=== PATIENT | female | born 1980 | race Caucasian/White ===

== ENCOUNTER 2019-09-30 14:17 | Outpatient (CLI) | payer BC | END 2019-09-30 14:18 | disposition home or self-care (01) | LOC: COV 14:17 | PROVIDERS: ATTEND Family Medicine | DX: R05 Cough (principal); R50.9 Fever, unspecified | CPT/HCPCS: 81599 ==

== ENCOUNTER 2019-10-14 08:00 | Outpatient (CLI) | payer BC, MEDICAID ==
[2019-10-14 18:38] LABS: H. PYLORIS ANTIGEN STL NEGATIVE (Negative)
== END 2019-10-14 23:59 | disposition home or self-care (01) ==
LOC: LAB.R 08:00
PROVIDERS: ATTEND Physician Assistant
DX: R19.7 Diarrhea, unspecified (principal)
CPT/HCPCS: 87045; 87046; 87338; 87493

== ENCOUNTER 2020-02-24 08:00 | Outpatient (CLI) | payer BC, MEDICAID ==
[2020-02-24 18:43] LABS: ALBUMIN 4.2 g/dL (3.2-5.5); ALBUMIN/GLOBULIN RATIO 1.6 (1.0-2.2); CALCIUM 9.2 mg/dL (8.5-10.3); CREATININE 0.7 mg/dL (0.4-1.0); TOTAL PROTEIN 6.8 g/dL (6.7-8.2)
[2020-02-24 18:52] LABS: BASOPHILS # (AUTO) 0.1 10^3/uL (0.0-0.1); BASOPHILS % (AUTO) 0.9 %; EOSINOPHILS # (AUTO) 0.1 10^3/uL (0.0-0.7); HGB - HEMOGLOBIN 12.9 g/dL (12.0-16.0); LYMPHOCYTES # (AUTO) 2.5 10^3/uL (1.5-3.5); LYMPHOCYTES % (AUTO) 31.7 %; MEAN CORPUSCULAR HEMOGLOBIN 29.3 pg (27.0-31.0); MEAN CORPUSCULAR VOLUME 91.4 fL (81.0-99.0); MEAN PLATELET VOLUME 11.6 fL (7.9-10.8); MONOCYTES # (AUTO) 0.5 10^3/uL (0.0-1.0); MONOCYTES % (AUTO) 6.5 %; NEUTROPHILS # (AUTO) 4.6 10^3/uL (1.5-6.6); NEUTROPHILS % (AUTO) 59.5 %; PLT - PLATELET COUNT 180 10^3/uL (130-450); RED BLOOD COUNT 4.41 10^6/uL (4.20-5.40); RED CELL DISTRIBUTION WIDTH 13.5 % (12.0-15.0); WHITE BLOOD COUNT 7.7 x10^3/uL (4.8-10.8)
== END 2020-02-24 23:59 | disposition home or self-care (01) ==
LOC: LAB.WCP 08:00
PROVIDERS: ATTEND Physician Assistant
DX: R19.7 Diarrhea, unspecified (principal)
CPT/HCPCS: 36415; 80053; 85025

== ENCOUNTER 2023-09-14 10:50 | Outpatient (CLI) | payer BC ==
--- NOTE | 2023-09-14 11:29 | Sleep Patient Instructions ---
Sleep Center Visit Summary - Patient Visit Information Reason for Visit: Initial consult for evaluation of sleep disordered breathing and other sleep issues. - Patient Instructions Instructions Attached: Sleep Study Additional Instructions: You will be completing a sleep study an in-lab polysomnography (PSG). You will follow-up in the sleep care office after the sleep study is completed to hear the results and talk about therapy, if needed. You will be called by our office staff to schedule this appointment, but you may contact us with any questions. - Clinic Information Contact: [facility] [address] [place] [address] [email or web address] T: [phone]
--- NOTE | 2023-09-14 11:34 | SLEEP CARE CONSULTATION ---
Information from patient questionnaire entered by Yannick Arambula. I have reviewed and concur with the information entered by Yannick Arambula. This document represents the service I personally performed and the decisions made by me, Suzy Mcdonough ARNP. History of Present Illness Service Date and Time: 09/14/2023 1050 Reason for Visit: New patient Chief Complaint: reports: Insomnia, Unrefreshed sleep, Excessive daytime sleepiness, Fatigue Date of Onset: YRS Usual bedtime: 8-9PM Time it takes to fall asleep: 15MIN Snores at night: No Observed to quit breathing while asleep: No Sleeps alone due to snoring: No Number of times waking at night: 1-3 Reasons for waking at night: reports: Pain, Bathroom, Other (UNKNOWN). denies: Choking, Gasping for air Toss, Turn, or Twitch while sleeping: Yes Recalls having dreams: Yes Usually gets out of bed at: 7-8AM Feels refreshed in the morning: No Morning headache: Yes (irregularly happens; does have cervical degeneration) Sleepy or fatigued during the day: Yes Ever fallen asleep while driving: Yes (drowsy driving, no accidents) Takes day naps: Yes (15 mins to 2 hours; 2-3 days a week; changes sometimes to more often) Dreams during day naps: No Prior sleep studies: No Additional HPI information: I had the pleasure of seeing CLAIR MOTLEY today regarding the possibility of her having a sleep disorder. Her current complaints are insomnia, unrefreshed sleep, excessive daytime sleepiness and fatigue. She is being evaluated for chronic fatigue syndrome. She can only work in morning, after about 4 hours she has to go back to sleep due to fatigue. She says it has been getting worse, steadily, over last few years. She is current wearing a heart monitor for evaluation of her heart through cardiology. She has not been told that she s nores or stops breathing at night. She does not wake up feeling rested despite sleeping generally around 10 hours nightly. She states she is not always able to get a nap because of kids scheduling but sometimes if she does not get a nap she just cannot function. 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 Patient is and lives in [place]. Have you smoked in the past 12 months: No Alcohol use: Yes Alcohol amount and frequency: 1 DRINK PER WEEK Caffeine use: Yes Caffeine amount and frequency: 1 COFFEE OR BLACK TEA 1-2X DAY Family History Family history of sleep disordered breathing: No Allergies and Home Medications Known drug allergies: Yes (CODEINE , BACTERIN/SULFA) Drug allergies reviewed: Yes Home medication list reviewed: Yes (as listed) Allergy and home medication list: Allergies codeine Allergy (Verified 09/14/23 10:54) Sulfa (Sulfonamide Antibiotics) Allergy (Verified 09/14/23 10:54) sulfamethoxazole [From Bactrim] Allergy (Verified 09/14/23 10:54) trimethoprim [From Bactrim] Allergy (Verified 09/14/23 10:54) Home Medications Famotidine See Rx Instructions .ROUTE .COMPLEX 09/12/23 [History] Levothyroxine [Synthroid] See Rx Instructions .ROUTE .COMPLEX 09/12/23 [History] Loratadine [Claritin] See Rx Instructions .ROUTE .COMPLEX 09/12/23 [History] Melatonin/Pyridoxine [Melatonin 5 mg Tablet] See Rx Instructions .ROUTE .COMPLEX 09/12/23 [History] Montelukast [Singulair] See Rx Instructions .ROUTE .COMPLEX 09/12/23 [History] Naltrexone HCl [Lotrexone] See Rx Instructions .ROUTE .COMPLEX 09/12/23 [History] Progesterone,Micronized [Progesterone Micronized] See Rx Instructions .ROUTE .COMPLEX 09/12/23 [History] buPROPion [Wellbutrin Sr] See Rx Instructions .ROUTE .COMPLEX 09/12/23 [History] hydrOXYzine HCL [Hydroxyzine HCl] See Rx Instructions .ROUTE .COMPLEX 09/12/23 [History] Review of Systems Weight gain over past 5 years: 40 Weight loss over past 5 years: 26 Cardiovascular: reports: chest pain. denies: high blood pressure Respiratory: reports: shortness of breath, wheeze, sputum production, chronic cough Gastrointestinal: reports: nausea, diarrhea, abdominal pain Urinary: reports: incontinence Neurological: reports: headaches, fainting or unconsciousness Psychiatric: reports: anxiety, depression Ear/Nose/Throat: reports: nasal congestion, sinus problems, hoarseness, wisdom teeth removed. denies: tonsillectomy Endocrine: reports: thyroid disease, sluggishness, too hot or cold, unexplained weakness Musculoskeletal: reports: muscle pain or cramping Immunologic: reports: itching Physical Exam Vital signs obtained and entered by: YANNICK Church MA Blood Pressure: 105/68 (RIGHT ARM) Cuff size: regular Heart Rate: 78 O2 Saturation: 99 Height: 5 ft 7 in Weight: 150 lb 6.4 oz Body Mass Index: 23.6 BMI Classification: Normal Neck circumference: 12.75 Mouth and throat: narrow oropharynx Soft palate: long Hard palate: normal Uvula: normal Uvula visualization: 0% Mallampati Class IV Tongue: normal in size Tonsils: small Neck: normal w/o lymphadenopathy or thyromegaly Heart: regular rate and rhythm Lungs: clear bilaterally Impression and Plan 1. Suspected Obstructive Sleep Apnea-Hypopnea Syndrome, as suggested by a history of unrefreshed sleep, cognitive impairment, and excessive daytime sleepiness. Narrow oropharynx and obesity are common predisposing factors for obstructive sleep apnea-hypopnea syndrome. I recommend proceeding to po lysomnography to confirm the diagnosis and to assess severity. If the patient has significant sleep disordered breathing, a manual CPAP titration study will also be performed to find the optimal treatment pressure. I informed the patient of what the sleep studies involve and after some discussion, obtained agreement to proceed. The pathophysiology of obstructive sleep apnea-hypopnea syndrome was discussed with the patient and health risks of cardiovascular and cerebrovascular disease if not treated. Risks of drowsy driving discussed in detail and patient advised to avoid long distance driving and to tie puller at the first sign of drowsiness. Patient agreed to plan. * Schedule polysomnography +- manual CPAP titration study and return in 1-2 weeks after the study to discuss result and initiate therapy. * Avoid long distance driving or driving when feeling sleepy. * Avoid alcohol, sedative and muscle relaxant around bedtime. * Review instructions provided by trained office staff on how to prepare for the sleep study. * Return for follow-up after sleep study completed. Follow up with Sleep Care in: other (after sleep study) Plan: PSG Visit Type: In Office Time Spent with Patient (minutes): 31 Provider Statement: I spent 100% of the Face to Face Visit with the patient with greater than 50% spent counseling the patient and coordination of care.
[2023-09-14 11:39] VITALS: BP 105/68; O2SAT 99
== END 2023-09-14 10:51 | disposition home or self-care (01) ==
LOC: SC 10:50
PROVIDERS: ATTEND Nurse Practitioner Family
DX: G47.10 Hypersomnia, unspecified (principal); G47.00 Insomnia, unspecified; G47.8 Other sleep disorders; R53.83 Other fatigue; R41.89 Other symptoms and signs involving cognitive functions and awareness
CPT/HCPCS: 99203; 99212

== ENCOUNTER 2023-10-05 20:38 | Outpatient (CLI) | payer BC | END 2023-10-05 20:39 | disposition home or self-care (01) | LOC: SC 20:38 | PROVIDERS: ATTEND Nurse Practitioner Family | DX: G47.10 Hypersomnia, unspecified (principal); G47.8 Other sleep disorders | CPT/HCPCS: 95810 ==

== ENCOUNTER 2024-01-03 15:39 | Outpatient (CLI) | payer BC ==
--- NOTE | 2024-01-03 14:53 | SLEEP CARE CONSULTATION ---
Information from patient questionnaire entered by Chiara Arambula. I have reviewed and concur with the information entered by Chiara Arambula. This document represents the service I personally performed and the decisions made by , Suzy Mcdonough ARNP. History of Present Illness Service Date and Time: 01/03/2024 1440 Initial [place] Sleepiness Scale score: 9 (08/10/23) Current [place] Sleepiness Scale score: 19 Additional HPI information: CLAIR MOTLEY returns via video appointment for follow up and results of the recently performed polysomnography. The patient was informed of the following findings: No significant sleep disorde red breathing with an average AHI of 0.7 and leon oxygen saturation of 90%. I explained the pathophysiology behind obstructive sleep apnea. Patient does not have sleep apnea and was advised how weight gain could increase the risk of developing sleep apnea in the future. Patient does not drink alcohol. Patient was cautioned about risks of drowsy driving until sleepiness symptoms resolve. Patient denies drowsy driving. Sleep Study - Results Type of Sleep Study: Polysomnography (COMPLETED 10/05/23) Prior sleep studies: No Polysomnography/Home Sleep Study results: IMPRESSION: The quality of the study is good. The patient had slightly reduced sleep efficiency due to a few awakenings during the night. The sleep architecture was relatively normal considering the first-night effect. Respiratory monitoring showed no significant sleep disordered breathing (AHI = 0.7) or hypoxia (leon oxygen saturation of 90%). The patient slept adequately in supine position (supine AHI = 1.9; non-supine = 0.00). No audible snore. There was no significant periodic leg movement of sleep. Cardiac rhythm was normal sinus rhythm without significant arrhythmia. No abnormal behavior (parasomnia) observed during the night. Allergies and Home Medications Known drug allergies: Yes (as listed) Drug allergies reviewed: Yes Home medication list reviewed: Yes (Sinemet, gabapentin for neck/shoulder pain) Allergy and home medication list: Allergies codeine Allergy (Verified 01/01/24 09:31) Sulfa (Sulfonamide Antibiotics) Allergy (Verified 01/01/24 09:31) sulfamethoxazole [From Bactrim] Allergy (Verified 01/01/24 09:31) trimethoprim [From Bactrim] Allergy (Verified 01/01/24 09:31) Review of Systems Review of systems same as previous: No (possible Parkinson's) Physical Exam Vital signs obtained and entered by: CHIARA Church MA Blood Pressure: 96/63 (per pt) Height: 5 ft 7 in Weight: 140 lb (per pt) Body Mass Index: 21.9 BMI Classification: Normal Impression and Plan 1. Fatigue. Patient's sleep study showed no significant sleep disordered breathing. She had no audible snore. Her leon oxygen saturation was 90% with average at 95%. She should continue follow-up with her PCP for further evaluation of her fatigue. * Return to PCP for further evaluation of her fatigue * The patient is cautioned about driving until sleepiness is completely resolved. * Return as needed for follow up. Visit Type: Telehealth Video Video Type: Doximity Patient Location: Home Location of Provider: Office Patient agrees and consents to this telehealth visit type: Yes Patient agrees to have their insurance billed: Yes Time Spent with Patient (minutes): 14 Provider Statement: I spent 100% of the Telehealth Video Call with the patient with greater than 50% spent counseling the patient and coordination of care.
[2024-01-03 15:03] VITALS: BP 96/63
== END 2024-01-03 15:40 | disposition home or self-care (01) ==
LOC: SC 15:39
PROVIDERS: ATTEND Nurse Practitioner Family
DX: R53.83 Other fatigue (principal)